=== PATIENT | male | born 1975 | race Caucasian/White ===

== ENCOUNTER 2017-07-12 15:09 | Emergency (ER) | payer BC ==
[2017-07-12 15:33] VITALS: TEMP 99
--- NOTE | 2017-07-12 16:44 | ED ---
General Adult HPI - General Chief complaint: Chest Pain Stated complaint: Chest Tightness, Pain in back Time Seen by Provider: 07/12/17 16:09 Source: patient, RN notes reviewed, old records reviewed Mode of arrival: ambulatory Limitations: no limitations - History of Present Illness Initial comments: This is a 42-year-old male to the ER for evaluation of pain. Shoulder pain left scapular pain neck pain. Patient has history of high blood pressure smoker. Patient states mainly is going to stress in his life stress at work stress at his job, when he first got caught this does breakdown except chronic, complaining of left shoulder pain states he woke up feeling it, feels like he is febrile shoulder. He denies shortness of breath no diaphoresis. No recent fever cough or congestion no travel history. He has had prior cardiac evaluation does not think this is heart. Patient just wants to get checked out make sure everything looks okay, refusing anything for pain, does not want Motrin or Tylenol - Related Data Home Medications Medication Instructions Recorded Confirmed No Known Home Medications [No 07/12/17 07/12/17 Known Home Medications] Allergies Allergy/AdvReac Type Severity Reaction Status Date / Time BURLAP Allergy Rash/Hives Uncoded 12/17/15 21:53 Review of Systems ROS Statement: Those systems with pertinent positive or pertinent negative responses have been documented in the HPI. ROS Other: All systems not noted in ROS Statement are negative. Past Medical History Past Medical History: Hypertension History of Any Multi-Drug Resistant Organisms: None Reported Past Surgical History: No Surgical Hx Reported Past Anesthesia/Blood Transfusion Reactions: No Reported Reaction Past Psychological History: No Psychological Hx Reported Smoking Status: Current every day smoker Past Alcohol Use History: None Reported Past Drug Use History: None Reported - Past Family History Mother Family Medical History: AFIB Additional Family Medical History / Comment(s): pacemaker General Exam - General Exam Comments Initial Comments: Pain is reproducible over midline of the left scapula Limitations: no limitations General appearance: alert, in no apparent distress Head exam: Present: atraumatic, normocephalic, normal inspection Eye exam: Present: normal appearance, PERRL, EOMI. Absent: scleral icterus, conjunctival injection, periorbital swelling ENT exam: Present: normal exam, mucous membranes moist Neck exam: Present: normal inspection. Absent: tenderness, meningismus, lymphadenopathy Respiratory exam: Present: normal lung sounds bilaterally. Absent: respiratory distress, wheezes, rales, rhonchi, stridor Cardiovascular Exam: Present: regular rate, normal rhythm, normal heart sounds. Absent: systolic murmur, diastolic murmur, rubs, gallop, clicks GI/Abdominal exam: Present: soft, normal bowel sounds. Absent: distended, tenderness, guarding, rebound, rigid Extremities exam: Present: normal inspection, full ROM, normal capillary refill. Absent: tenderness, pedal edema, joint swelling, calf tenderness Back exam: Present: normal inspection Neurological exam: Present: alert, oriented X3, CN II-XII intact Psychiatric exam: Present: normal affect, normal mood Skin exam: Present: warm, dry, intact, normal color. Absent: rash Course Vital Signs 07/12/17 15:31 Temperature 99.0 F Pulse Rate 88 Respiratory 20 Rate Blood Pressure 163/87 O2 Sat by Pulse 98 Oximetry EKG Findings - EKG Comments: EKG Findings:: EKG shows normal sinus rhythm rate of 93, AK 136, QRS 96, QTc 437 Medical Decision Making - Medical Decision Making 42 male the ER for evaluation of chest pain shoulder pain neck pain nonspecific. Musculoskeletal. X-ray and EKG are negative, patient can be discharged home - Radiology Data Radiology results: report reviewed (Chest x-rays negative for acute disease), image reviewed Disposition Clinical Impression: Left shoulder pain, Pain in scapula, Anxiety Disposition: HOME SELF-CARE Condition: Good Instructions: Chest Pain (ED) Is patient prescribed a controlled substance at d/c from ED?: No Referrals: Humble Sorto MD [Primary Care Provider] - 1-2 days
--- NOTE | 2017-07-12 16:50 | XR ---
EXAMINATION TYPE: XR chest 2V DATE OF EXAM: 07/12/2017 COMPARISON: 10/27/2015 INDICATION: Chest pain TECHNIQUE: Frontal and lateral views of the chest are obtained. FINDINGS: The heart size is normal. The pulmonary vasculature is normal. The lungs are clear. IMPRESSION: 1. No acute pulmonary process.
[2017-07-12 16:57] VITALS: BP 128/78; PULSE 83; RESP 18
== END 2017-07-12 16:54 | disposition home or self-care (01) ==
LOC: EC 15:09
DX: M25.512 Pain in left shoulder (principal); M54.2 Cervicalgia; F41.9 Anxiety disorder, unspecified; F17.200 Nicotine dependence, unspecified, uncomplicated; Z91.048 Other nonmedicinal substance allergy status
CPT/HCPCS: 71046; 93005; 99285